=== PATIENT | male | born 1950 | race Caucasian/White ===

== ENCOUNTER 2024-04-23 11:35 | Emergency (ER) | payer MEDICARE, OTHER, SELFPAY ==
[2024-04-23] VITALS (14 sets, daily range): BP systolic 121–148; BP diastolic 66–84; PULSE 46–63; RESP 11–26; TEMP 36.4; O2SAT 97–100; BMI 20.9
--- NOTE | 2024-04-23 11:49 | DI.RAD.S_ITS ---
PROCEDURE: XR CHEST 1V INDICATIONS: Possible stroke TECHNIQUE: One view of the chest was acquired. COMPARISON: None. FINDINGS: Surgical changes and devices: None. Lungs and pleura: Lungs are clear. No pleural effusions or pneumothorax. Mediastinum: Mediastinal contours appear normal. Heart size is normal. Bones and chest wall: S shaped scoliotic curvature of the spine. No suspicious bony lesions. Overlying soft tissues appear unremarkable. IMPRESSION: No acute cardiopulmonary abnormality is seen. Dictated by: Blake Abdalla M.D. on 04/23/2024 at 12:18 Approved by: Blake Abdalla M.D. on 04/23/2024 at 12:18
--- NOTE | 2024-04-23 12:02 | EKG_ITS ---
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
--- NOTE | 2024-04-23 12:35 | DI.CT.S_ITS ---
PROCEDURE: CT HEAD/BRAIN WO CON INDICATIONS: balance issues/neck pain TECHNIQUE: Noncontrast 4.5 mm thick angled axial sections acquired from the foramen magnum to the vertex, with coronal and sagittal reformats. For radiation dose reduction, the following was used: automated exposure control, adjustment of mA and/or kV according to patient size. COMPARISON: [facility], CR, XR CHEST 1V, 04/23/2024, 11:49. FINDINGS: Image quality: Diagnostic. CSF spaces: Basal cisterns are patent. No extra-axial fluid collections. The ventricles are symmetric in size and shape. Brain: No intracranial bleeds or masses. There is cerebral volume loss for age, with resultant ventricular and sulcal prominence. There are periventricular and deep white matter chronic small vessel ischemic changes. There is intracranial internal carotid artery atherosclerosis. Skull and face: Calvarium and visualized facial bones appear intact, without suspicious lesions. Sinuses: Visualized sinuses and mastoids are clear. IMPRESSION: Noncontrast head CT within normal limits for age. No acute intracranial hemorrhage is seen. If there is strong clinical suspicion for an acute stroke, please consider a brain MRI for further evaluation, as it is more sensitive (assuming that there is no contraindication to MRI). Dictated by: Robert Cordero M.D. on 04/23/2024 at 13:12 Approved by: Robert Cordero M.D. on 04/23/2024 at 13:13
[2024-04-23 12:41] LABS: Add Manual Diff / Slide Review NO; Basophils Absolute Auto 0 /uL (0-100); Basophils Percent Auto 0.5 % (0-2); Eosinophils Absolute Auto 100 /uL (0-450); Eosinophils Percent Auto 1.2 % (2-4); Hematocrit 42.1 % (41-53); Hemoglobin 14.7 g/dL (13.5-17.5); Lymphocytes Absolute Auto 1300 /uL (1100-4500); Lymphocytes Percent Auto 26.3 % (25-40); Mean Corpuscular HGB Conc 34.8 % (30-36); Mean Corpuscular Volume 100.4 fL (80-100); Monocytes Absolute Auto 500 /uL (0-900); Monocytes Percent Auto 10.4 % (3-14); Neutrophils Absolute Auto 3100 /uL (1500-7000); Neutrophils Percent Auto 61.6 % (50-75); Platelet Count 239 X10^3/uL (150-400); Red Cell Distribution Width 12.9 % (11.6-14.8)
[2024-04-23 12:42] LABS: Prothrombin Time 10.9 SECONDS (9.4-12.5)
[2024-04-23 12:45] LABS: PTT Partial Thromboplastin Tim 32 SECONDS (25.1-36.5)
[2024-04-23 13:20] LABS: Alanine Aminotransferase 20 IU/L (<50); Albumin 3.9 g/dL (3.5-5.0); Albumin Globulin Ratio 1.5 (1.0-2.8); Alkaline Phosphatase 37 U/L (38-126); Aspartate Aminotransferase 25 IU/L (17-59); BUN Creatinine Ratio 19.2 (6-22); Bilirubin Total 0.8 mg/dL (0.2-1.3); Blood Urea Nitrogen 15 mg/dL (9-20); Calcium 9.2 mg/dL (8.4-10.2); Carbon Dioxide 27 mmol/L (22-32); Chloride 102 mmol/L (98-107); Creatine Kinase 113 U/L (55-170); Estimated Glomerular Filt Rate > 60 mL/min (>60); Globulin 2.6 g/dL (1.7-4.1); Glucose 101 mg/dL (80-110); HEMOLYSIS < 15 (0-50); Magnesium 1.9 mg/dL (1.6-2.3); Potassium 4.4 mmol/L (3.4-5.1); Sodium 133 mmol/L (137-145); Total Protein 6.5 g/dL (6.3-8.2)
[2024-04-23 13:29] LABS: Troponin I < 0.012 ng/mL (0.01-0.034)
--- NOTE | 2024-04-23 16:02 | ED_ITS ---
HPI - Dizziness General Chief Complaint: Dizziness Stated Complaint: off balance and headache Time Seen by Provider: 04/23/24 15:56 Source: patient, RN notes reviewed and old records reviewed Mode of arrival: Ambulatory Limitations: no limitations History of Present Illness HPI Narrative: 73-year-old male no reported medical issues presents with a week of feeling off balance intermittently he states has been fairly brief episodes particularly related with movement such as bending over moving his head quickly and rotating it quickly. Today he had gotten up felt slightly off balance but went to his work bench was bent down for a period of time working on something and then stood up and felt very off balance. He states the room did not spin but was more feeling off balance. No lightheadedness or passing out. States lasted about an hour and then did improve. States episodes this week has been similar but not as prolonged. States it all started about a week ago. Patient states he has had little bit of a posterior headache for several months but describes it as mild. He has had some chronic neck pain which he is taken Flexeril in the past. No new changes to this. No numbness tingling or weakness to book no difficulty with speech no facial droop, no sudden vision changes, no chest pain or shortness of breath no nausea or vomiting, no issues with bowel movements or urination. No incontinence. Patient states he was ambulated in the department and feels improved. He describes improvement has been slow. Patient states no daily prescription medications, states no recent surgeries. No known drug allergies. No tobacco, has 1 or 2 alcoholic drinks most nights of the week, no recreational drugs. Recently moved to the area 3 weeks ago but has not appointment established for May 14 with primary care. Related Data Allergies Allergy/AdvReac Type Severity Reaction Status Date / Time No Known Drug Allergies Allergy Verified 04/23/24 11:40 Review of Systems Review of Systems ROS Unobtainable: All systems reviewed & are unremarkable except as noted in HPI and below Patient History Social History Smoking Status: Never smoker Smoking Status: Never smoker alcohol intake frequency: a few times a week Substance Use Type: does not use Exam Narrative Exam Narrative: GEN: well nourished, well appearing male, alert and oriented x [default value], patient appears to be in mild distress. HEENT: Atraumatic, pupils are equal round reactive to light, extraocular movements are intact, nares are clear, TMs retracted, no fluid, no erythema no loss of light reflex, there is no conjunctival pallor. Throat is clear without any exudates, erythema, tonsillar enlargement or uvular deviation no facial droop. HEART: Regular rate and rhythm without murmur, clicks, rubs. No carotid bruits, pulses are equal in upper and lower extremities LUNGS:Lungs clear to auscultation, no wheezes, rales, crackles, chest moves symmetrically ABD:bowel sounds normal, soft, non-tender, no guarding, rebound, rigidity, no masses noted, no hepatosplenomegaly :No CVA tenderness MSCL: Non-tender, no muscle atrophy, muscles strength 5/5 upper and lower extremities, full range of motion, normal gait NEURO:CN 2-12 intact, sensation normal, finger nose finger test normal, heel herzog test normal, no dysarthria or aphasia Initial Vital Signs Initial Vital Signs: Vital Signs Temperature 97.5 F L 04/23/24 11:40 Pulse Rate 58 L 04/23/24 11:40 Respiratory Rate 18 04/23/24 11:40 Blood Pressure 126/66 04/23/24 11:40 Pulse Oximetry 100 04/23/24 11:40 Oxygen Delivery Method Room Air 04/23/24 11:40 Scores NIH Stroke Scale Level of Conciousness: Alert, keenly responsive Ask month/age: Answers both questions correctly. Open/close eyes, close hand: Performs both tasks correctly Best gaze horizontal: Normal Visual peterson: No visual loss Facial palsy: Normal symetrical movement Left arm drift: No drift for full 10 sec Right arm drift: No drift for full 10 sec Left leg drift: No drift for full 5 sec Right leg drift: No drift for full 5 sec Limb ataxia: Absent Sensory on face/arms/legs: Normal, no sensory loss Best language: No aphasia, normal Dysarthria: Normal Extinction or inattention: No abnormality Total NIH Stroke scale score: 0 Course Orders Ordered: ED Orders 04/23/24 11:49 XR chest 1V Stat EKG-12 Lead Stat 04/23/24 12:28 Complete Blood Count AUTO DIFF Stat Comprehensive Metabolic Panel Stat Magnesium Stat PTT Partial Thromboplastin Valdo Stat Prothrombin Time INR Stat Troponin & CK Cardiac Panel Stat 04/23/24 12:35 CT head/brain w con Stat 04/23/24 15:35 Urinalysis and Microscopic Stat Urine Drug Screen, Rapid Stat Discontinued Medications Ondansetron HCl (Ondansetron 4 Mg/2 Ml Inj) 4 mg IV NOW PRN PRN Reason: Nausea And Vomiting Ondansetron HCl (Ondansetron 4 Mg Odt) 4 mg SL NOW PRN PRN Reason: Nausea And Vomiting Vital Signs Vital signs: Vital Signs - 8 hr 04/23/24 11:40 04/23/24 11:53 04/23/24 12:00 Temperature 97.5 F L Pulse Rate 58 L 59 L Respiratory Rate 18 Blood Pressure 126/66 139/68 Pulse Oximetry 100 97 Oxygen Delivery Method Room Air 04/23/24 12:00 04/23/24 12:30 04/23/24 12:30 Temperature Pulse Rate 51 L 60 Respiratory Rate 17 26 H Blood Pressure 140/79 Pulse Oximetry 100 100 Oxygen Delivery Method Room Air 04/23/24 13:00 04/23/24 13:00 04/23/24 13:30 Temperature Pulse Rate 47 L Respiratory Rate 14 Blood Pressure 131/70 121/73 Pulse Oximetry 100 Oxygen Delivery Method Room Air 04/23/24 13:30 04/23/24 14:01 04/23/24 14:02 Temperature Pulse Rate 47 L 56 L Respiratory Rate 11 L 17 Blood Pressure 126/77 Pulse Oximetry 99 98 Oxygen Delivery Method 04/23/24 14:02 04/23/24 14:30 04/23/24 14:30 Temperature Pulse Rate 47 L 48 L Respiratory Rate 14 11 L Blood Pressure 138/69 Pulse Oximetry 100 100 Oxygen Delivery Method Room Air 04/23/24 15:00 04/23/24 15:00 04/23/24 15:32 Temperature Pulse Rate 53 L Respiratory Rate 13 Blood Pressure 132/73 148/84 H Pulse Oximetry 100 Oxygen Delivery Method Room Air 04/23/24 15:32 04/23/24 16:00 04/23/24 16:00 Temperature Pulse Rate 63 46 L Respiratory Rate 13 Blood Pressure 145/76 H Pulse Oximetry 100 Oxygen Delivery Method Room Air 04/23/24 16:30 04/23/24 16:31 04/23/24 16:31 Temperature Pulse Rate 48 L 50 L Respiratory Rate 15 18 Blood Pressure 139/75 Pulse Oximetry 100 100 Oxygen Delivery Method Room Air MDM - Dizziness Lab Data 04/23/24 12:28 04/23/24 12:28 Labs: Lab Results 04/23/24 04/23/24 04/23/24 Range/Units 12:28 15:35 15:35 WBC 5.0 (4.5-11.0) X10^3/uL RBC 4.20 L (4.5-5.9) X10^6/uL Hgb 14.7 (13.5-17.5) g/dL Hct 42.1 (41-53) % MCV 100.4 H (80-100) fL MCH 35.0 H (26-34) PG MCHC 34.8 (30-36) % RDW 12.9 (11.6-14.8) % Plt Count 239 (150-400) X10^3/uL Neut % (Auto) 61.6 (50-75) % Lymph % (Auto) 26.3 (25-40) % [place] % (Auto) 10.4 (3-14) % Eos % (Auto) 1.2 L (2-4) % Baso % (Auto) 0.5 (0-2) % Neut # (Auto) 3100 (2781-4756) /uL Lymph # (Auto) 1300 (0057-1132) /uL [place] # (Auto) 500 (0-900) /uL Eos # (Auto) 100 (0-450) /uL Baso # (Auto) 0 (0-100) /uL PT 10.9 (9.4-12.5) SECONDS INR 1.0 (0.9-1.3) APTT 32 (25.1-36.5) SECONDS Sodium 133 L (137-145) mmol/L Potassium 4.4 (3.4-5.1) mmol/L Chloride 102 (98-107) mmol/L Carbon Dioxide 27 (22-32) mmol/L BUN 15 (9-20) mg/dL Creatinine 0.78 (0.66-1.25) mg/dL Estimated GFR > 60 (>60) mL/min BUN/Creatinine Ratio 19.2 (6-22) Glucose 101 (80-110) mg/dL Calcium 9.2 (8.4-10.2) mg/dL Magnesium 1.9 (1.6-2.3) mg/dL Total Bilirubin 0.8 (0.2-1.3) mg/dL AST 25 (17-59) IU/L ALT 20 (<50) IU/L Alkaline Phosphatase 37 L (38-126) U/L Total Creatine Kinase 113 (55-170) U/L Troponin I < 0.012 (0.01-0.034) ng/mL Total Protein 6.5 (6.3-8.2) g/dL Albumin 3.9 (3.5-5.0) g/dL Globulin 2.6 (1.7-4.1) g/dL Albumin/Globulin Ratio 1.5 (1.0-2.8) Urine Color Yellow Urine Appearance Clear Urine pH 6.5 Normal (4.5-8.0) Ur Specific [place] <=1.005 (1.000-1.035) Urine Protein Negative (Negative) Urine Glucose (UA) Negative (Negative) g/dL Urine Ketones Negative (NEGATIVE) Urine Occult Blood Trace-intact (Negative) Urine Nitrate Negative (Negative) Urine Bilirubin Negative (NEGATIVE) Urine Urobilinogen 0.2 (0.2) E.U./dL Ur Leukocyte Esterase Negative (NEGATIVE) Urine RBC 1-5/hpf (0-5/HPF) Urine WBC 0-1/hpf (0-5/HPF) Ur Squamous Epith Cells 0-1 /hpf (0-5/HPF) Urine Bacteria Occasional (0-1) (None) Urine Mucus 1+ H (Negative) Ur Culture Indicated? Cult not indicated Vol Urine Centrifuged 10ml (spun) U Opiates 300ng/mL cut Negative (Negative) Ur Oxycodone Screen Negative (Negative) Urine Methadone Screen Negative (Negative) Ur Barbiturates Screen Negative (Negative) U Tricyclic Antidepress Negative (Negative) Ur Phencyclidine Scrn Negative (Negative) Ur Amphetamines Screen Negative (Negative) U Methamphetamines Scrn Negative (Negative) Ur MDMA Scrn (Ecstasy) Negative (Negative) U Benzodiazepines Scrn Negative (Negative) Urine Cocaine Screen Negative (Negative) U Marijuana (THC) Screen Negative (Negative) Urine Specific [place] Normal (Normal) Ur Creatinine Normal (Normal) Urine Dip Bedside Urine Glucose Negative Bedside Urine Bilirubin - Negative Bedside Urine Ketone - Negative Urine Specific [place] 1.005 Bedside Urine Occult Blood +/- Bedside Urine pH 6.0 Bedside Urine Protein - Negative Bedside Urine Urobilinogen - Negative Bedside Urine Nitrite - Negative Bedside Urine Leukocytes - Negative Esterase Imaging Data Chest x-ray: Radiologist's Impression: Irwin Cote??73??M??1950 ? Allergy/Adv: No Known Drug Allergies Close Head CT (Signed) Robert Cordero - 04/23/24 Chest X-Ray (Signed) Blake Abdalla - 04/23/24 Launch?[address] [address] XRay Report Signed Patient: Irwin Cote MR#: [id number] : 1950 Acct:[id number] Age/Sex: 73 / M Date of Service: 04/23/24 Loc: ED Accession Number: [id number] Procedure: XR chest 1V Ordering Provider: Brie Escalante D.O. PROCEDURE: XR CHEST 1V INDICATIONS: Possible stroke TECHNIQUE: One view of the chest was acquired. COMPARISON: None. FINDINGS: Surgical changes and devices: None. Lungs and pleura: Lungs are clear. No pleural effusions or pneumothorax. Mediastinum: Mediastinal contours appear normal. Heart size is normal. Bones and chest wall: S shaped scoliotic curvature of the spine. No suspicious bony lesions. Overlying soft tissues appear unremarkable. IMPRESSION: No acute cardiopulmonary abnormality is seen. Dictated by: Blake Abdalla M.D. on 04/23/2024 at 12:18 Approved by: Blake Abdalla M.D. on 04/23/2024 at 12:18 CT scan - head: Radiologist's Impression: Irwin Cote??73??M??1950 ? Allergy/Adv: No Known Drug Allergies Close Head CT (Signed) Robert Cordero - 04/23/24 Chest X-Ray (Signed) LianneBlake - 04/23/24 Launch?[address] [address] [address] Scan Report Signed Patient: Irwin Cote MR#: [id number] : 1950 Acct:[id number] Age/Sex: 73 / M Date of Service: 04/23/24 Loc: ED Accession Number: [id number] Procedure: CT head/brain w con Ordering Provider: Brie Escalante D.O. PROCEDURE: CT HEAD/BRAIN WO CON INDICATIONS: balance issues/neck pain TECHNIQUE: Noncontrast 4.5 mm thick angled axial sections acquired from the foramen magnum to the vertex, with coronal and sagittal reformats. For radiation dose reduction, the following was used: automated exposure control, adjustment of mA and/or kV according to patient size. COMPARISON: [facility], CR, XR CHEST 1V, 04/23/2024, 11:49. FINDINGS: Image quality: Diagnostic. CSF spaces: Basal cisterns are patent. No extra-axial fluid collections. The ventricles are symmetric in size and shape. Brain: No intracranial bleeds or masses. There is cerebral volume loss for age, with resultant ventricular and sulcal prominence. There are periventricular and deep white matter chronic small vessel ischemic changes. There is intracranial internal carotid artery atherosclerosis. Skull and face: Calvarium and visualized facial bones appear intact, without suspicious lesions. Sinuses: Visualized sinuses and mastoids are clear. IMPRESSION: Noncontrast head CT within normal limits for age. No acute intracranial hemorrhage is seen. If there is strong clinical suspicion for an acute stroke, please consider a brain MRI for further evaluation, as it is more sensitive (assuming that there is no contraindication to MRI). Dictated by: Robert Cordero M.D. on 04/23/2024 at 13:12 Approved by: Robert Cordero M.D. on 04/23/2024 at 13:13 ECG Data Attestation: I personally reviewed and interpreted this ECG as follows: Prior ECG tracings: not available for review Interpretation: Sinus bradycardia rate of 48 FL 194 QRS of 112 QTC of 389, no acute ST elevation or depression noted. Nonspecific change. No priors for comparison. MDM Narrative Medical decision making narrative: 73-year-old male with complaint of balance issues for the past week associated with movement of the head particular. Patient has had episodes all week but today's was a bit more prolonged. Patient's symptoms have since resolved he describes it as sort of a gradual improvement. NIH is 0 with no other acute neurologic changes appreciated patient has not had any other neurologic symptoms at home. TMs are retracted but no other signs of infection no recent upper respiratory infection. Patient is noted to be bradycardic which he states is his baseline there maybe a component of orthostatic hypotension but as it is very movement related and seems less likely. Labs white count of 5 hemoglobin of 14.7 platelets of 239. Coags are negative. Sodium 133, potassium 4.4 chloride of 102 CO2 27 BUN 15 creatinine 0.68 glucose of 101 LFTs are negative, alk-phos is 37, troponins less than 0.012. EKG sinus bradycardia UDS is negative Point of care urine negative for nitrates or leukocyte esterase, specific gravity is 1.[address] shows no acute change. Chest x-ray shows no acute change Discussed with patient suspicion for TIA or acute stroke is lower, reviewed findings from today with patient and family. Does not completely rule out TIAs but patient's symptomology seems less consistent with this. He has follow up set up in April with primary care we will also give contact for ENT to follow up. Discussed return precautions all questions answered. Patient and family expressed understanding and feel comfortable with discharge home. Discharge Plan Departure Patient Disposition: Home Clinical Impression: Balance problem Instructions: DI for Vertigo Activity Restrictions/Additional Instructions: Please follow up for recheck, there is also contacts included for ENT to follow up if your symptoms are persisting. Contact is included below. Please return for new or worsening symptoms, severe headaches, sudden vision changes, new numbness tingling or weakness, difficulty with movement or facial droop, rapidly worsening sensation of off balance or inability to ambulate safely or other new or concerning changes. Referrals: Keara Dejesus MD [Primary Care Provider] - Isaias Bullard MD [Physician] - Stand Alone Forms: Patient Portal/API/Survey
[2024-04-23 16:04] LABS: Ur Creatinine Normal (Normal); Ur Specific Gravity Normal (Normal); Urine Amphetamines Negative (Negative); Urine Barbiturates Negative (Negative); Urine Benzodiazepines Negative (Negative); Urine Cocaine Negative (Negative); Urine MDMA Negative (Negative); Urine Methadone Negative (Negative); Urine Methamphetamines Negative (Negative); Urine Opiates Negative (Negative); Urine Oxycodone Negative (Negative); Urine Phencyclidine Negative (Negative); Urine THC Negative (Negative); Urine Tricyclic Antidepressant Negative (Negative); Urine pH Normal (Normal)
--- NOTE | 2024-04-23 16:27 | PC.NURSE ---
Pt sitting in bed reading on his e-book. Pt HR in the mid 40's, denies feeling dizzy/lightheaded. States I'm wiggling my feet to keep my heart rate up.
[2024-04-23 16:29] LABS: Appearance Urine UA CLEAR; Bilirubin Urine UA NEGATIVE (NEGATIVE); Color Urine UA YELLOW; Glucose Urine UA NEGATIVE (Negative); Ketones Urine UA NEGATIVE (NEGATIVE); Leukocyte Esterase Urine UA NEGATIVE (NEGATIVE); Nitrite Urine UA NEGATIVE (Negative); Occult Blood Urine UA TRACE-INTACT (Negative); Protein Urine UA NEGATIVE (Negative); Specific Gravity Urine UA <=1.005 (1.000-1.035); Urobilinogen Urine UA 0.2 E.U./dL (0.2); pH Urine UA 6.5 (4.5-8.0)
[2024-04-23 16:49] LABS: Bacteria Urine Occasional (0-1); Culture Indicated Urine Cult Not Indicated; Mucus Urine 1+ (Negative); RBC Urine 1-5/HPF (0-5/HPF); Squamous Epithelial Cell Urine 0-1 /HPF (0-5/HPF); Urine Volume 10mL (spun); WBC Urine 0-1/HPF (0-5/HPF)
== END 2024-04-23 16:51 | disposition home or self-care (01) ==
PROVIDERS: Emergency Provider Emergency Medicine; PCP Family Medicine
DX: R26.89 Other abnormalities of gait and mobility (principal); R00.1 Bradycardia, unspecified; M54.2 Cervicalgia
CPT/HCPCS: 36415; 70460; 71045; 80053; 80305; 81001; 81003; 82550; 83735; 84484; 85025; 85610; 85730; 93005; 99284